=== PATIENT | male | born 1960 | race Caucasian/White ===

== ENCOUNTER 2021-03-06 11:24 | Outpatient (CLI) | payer OTHER, SELFPAY | END 2021-03-06 11:25 | disposition home or self-care (01) | LOC: CHSCOVIDVC 11:26 | PROVIDERS: PCP Family Medicine | DX: Z23 Encounter for immunization (principal) | CPT/HCPCS: 0011A; 0012A; 91301 ==

== ENCOUNTER 2021-10-05 07:10 | Outpatient (CLI) | payer OTHER, SELFPAY ==
--- NOTE | 2021-10-05 | ECG_ITS ---
Measurements Intervals [place] Rate: 63 P: 56 MI: 160 QRS: -1 QRSD: 101 T: 39 QT: 397 QTc: 408 Interpretive Statements SINUS RHYTHM INCOMPLETE RIGHT BUNDLE BRANCH BLOCK EARLY PRECORDIAL R/S TRANSITION BASELINE WANDER- I, AVR, AVF, V1, V3-V6 BORDERLINE ECG Electronically Signed On 10-05-2021 9:19:53 LEGAL SECRETARY by Demar Bustamante D.O.
[2021-10-05 08:19] LABS: Urine Cotinine POSITIVE
[2021-10-05 08:19] LABS: Albumin Level 4.5 g/dL (3.5-5.1); Estimated Glomerular Filt Rate > 60; Glucose 86 mg/dL (65-110)
[2021-10-05 08:22] LABS: Hematocrit 48.3 % (42.0-52.0); Hemoglobin 16.2 g/dL (14.0-18.0); Hemoglobin A1C 5.2 % (<5.7)
== END 2021-10-05 07:11 | disposition home or self-care (01) ==
PROVIDERS: PCP Family Medicine; Visit Provider Orthopaedic Surgery
DX: Z01.818 Encounter for other preprocedural examination (principal); M17.12 Unilateral primary osteoarthritis, left knee; Z86.69 Personal history of other diseases of the nervous system and sense organs; E03.9 Hypothyroidism, unspecified
CPT/HCPCS: 80307; 82040; 82565; 82947; 83036; 85014; 85018; 93005

== ENCOUNTER 2021-11-02 07:09 | Outpatient (CLI) | payer OTHER, SELFPAY ==
[2021-11-02 07:54] LABS: Urine Cotinine NEGATIVE
== END 2021-11-02 07:10 | disposition home or self-care (01) ==
PROVIDERS: PCP Family Medicine; Visit Provider Orthopaedic Surgery
DX: Z01.810 Encounter for preprocedural cardiovascular examination (principal); M17.12 Unilateral primary osteoarthritis, left knee; Z87.891 Personal history of nicotine dependence
CPT/HCPCS: 80307

== ENCOUNTER 2022-02-02 09:44 | Outpatient (CLI) | payer OTHER, SELFPAY ==
[2022-02-02 11:21] LABS: Basophils Absolute Auto 0.1 K/mm3 (0.0-0.1); Basophils Percent Auto 0.9 % (0.2-1.2); Eosinophils Absolute Auto 0.4 K/mm3 (0-0.3); Eosinophils Percent Auto 4.7 % (0-4.4); Hematocrit 47.1 % (42.0-52.0); Hemoglobin 15.9 g/dL (14.0-18.0); Immature Granulocyte Absolute 0.03 K/mm3 (0.00-0.031); Immature Granulocyte Percent A 0.4 % (0-0.5); Lymphocytes Absolute Auto 2.61 K/mm3 (0.9-3.2); Lymphocytes Percent Auto 35.2 % (18.3-44.2); Mean Corpuscular HGB Conc 33.8 g/dl (32-36); Mean Corpuscular Hemoglobin 32.2 pg (26-34); Mean Corpuscular Volume 95.3 fl (80-100); Mean Platelet Volume 9.4 fl (7.4-10.4); Monocytes Absolute Auto 0.6 K/mm3 (0.1-0.6); Monocytes Percent Auto 8.4 % (2.6-8.5); Neutrophils Absolute Auto 3.7 K/mm3 (1.3-6.7); Neutrophils Percent Auto 50.4 % (45.5-73.1); Platelet Count Result 215 k/mm3 (150-375); Red Blood Count 4.94 M/mm3 (4.6-6.20); Red Cell Distribution Width 12.3 % (11.5-14.5); White Blood Count 7.4 K/mm3 (4.5-10.0)
[2022-02-02 11:30] LABS: Albumin Level 4.8 g/dL (3.5-5.1); Estimated Glomerular Filt Rate > 60; Glucose 102 mg/dL (65-110)
[2022-02-02 11:33] LABS: Hemoglobin A1C 5.1 % (<5.7)
[2022-02-02 12:28] LABS: Urine Cotinine NEGATIVE
== END 2022-02-02 09:45 | disposition home or self-care (01) ==
PROVIDERS: PCP Family Medicine; Visit Provider Orthopaedic Surgery
DX: Z01.812 Encounter for preprocedural laboratory examination (principal); M17.12 Unilateral primary osteoarthritis, left knee; Z51.81 Encounter for therapeutic drug level monitoring; Z79.899 Other long term (current) drug therapy
CPT/HCPCS: 80307; 82040; 82565; 82947; 83036; 85025; 87081

== ENCOUNTER 2022-03-01 00:59 | Day surgery (SDC) | payer OTHER, SELFPAY ==
--- NOTE | 2022-02-02 09:50 | PC.NURSE ---
Report to the Outpatient Waiting Room, entrance under the green pavilion located off [facility], at time __11:30AM___ on date _03/01/22____. OR Time: __1:30PM . - You and your visitor will be asked a series of questions to screen for COVID 19 for your protection. - A mask is required within the hospital. Preoperative COVID Testing Requirements: No COVID Test needed if: (proof is required; if not received patient will have Rapid Test prior to entry) - Patient has received COVID Vaccine at least 14 days prior to procedure date or - Patient has positive COVID test result within last 90 days of surgery date. COVID Test needed if above criteria is not met If not COVID vaccinated a COVID test must be conducted within 72 hours of surgery and patient is asked to isolate self from time of testing until procedure. You will go to the [facility] [place] [facility] for your COVID testing. The [facility] [place] [facility] is located at the corner of [address] [facility]. You will only be called if COVID results are positive and your surgeon may reschedule your elective surgery date. Patients may have clear liquids (water, carbonated beverages, clear teas, apple juice) until 3 hours prior to surgery with a maximum of 20 ounces. - No food from midnight until time of surgery - Infants may have breast milk until 4 hours before surgery, formula 6 hours prior to surgery. - Children will be allowed to drink immediately following surgery. If applicable, please bring a bottle or sippy cup to assist with drinking. Juice, water, soda, and popsicles are readily available. For infants on formula, please bring formula the day of surgery. Pacifiers are allowed. Take the following medications with a SIP of water the morning of surgery: ___LEVOTHYROXINE, GABAPENTIN Medications to discontinue per physician ____HOLD ALL VITAMINS/SUPPLEMENTS AND NSAIDS(MELOXICAM & ALEVE) 7 DAYS PRE-OP Date to take last dose 02/22/22 Please no make-up, nail pakistani, hairspray, perfume, deodorant, or body powder the day of surgery. No jewelry (including any body piercings) or valuables the day of surgery, leave them at home. Please take a shower or bath the night before, or the morning of, surgery with an antibacterial soap. Wear comfortable, loose fitting clothing. Children are encouraged to wear pajamas. - Jewelry must be removed prior to entering the operating room. Rings and piercings that are not removed may be cut off. - The hospital will not accept responsibility for valuables. - Please leave all valuables, including medications, at home the day of surgery. If you are going home after surgery, a licensed power truck driver must drive you home. - NO public transportation without another adult. - We recommend that an adult stay with you for 24 hours following discharge. - We also recommend that you do not drive, make important decision, drink alcoholic beverages, or take any drugs that were not prescribed by your health care provider for at least 24 hours after your discharge time. For Pediatric surgeries, we recommend two adults accompany the child home (only one inside the building at this time). One visitor will be allowed to accompany the patient into the hospital. Patients visitor will be instructed to remain with patient at all times or leave the building. We will allow the visitor to come back to the postoperative area when patient is ready. Follow any additional instructions given to you from your surgeon. Telephone instructions given to __PATIENT and asked if any additional questions and then verbalized understanding. Patient advised to call surgeon office or pre surgery nurse liaison [phone] if any additional questions.
[2022-02-02 10:02] VITALS: BP 154/85; PULSE 74; RESP 16; TEMP 37.2; O2SAT 95; BMI 34.0
[2022-03-01] VITALS (10 sets, daily range): BP systolic 136–168; BP diastolic 80–93; PULSE 67–89; RESP 10–18; TEMP 36.3–36.9; O2SAT 93–98
--- NOTE | ~2022-03-01 | XR_ITS ---
EXAMINATION: XR knee LT 2V DATE: 03/01/2022 15:33 INDICATION: Postoperative evaluation following left total knee arthroplasty. TECHNIQUE: Anteroposterior and lateral views of the left knee were obtained. COMPARISON: None. FINDINGS: Left total knee arthroplasty with patellar resurfacing appears well seated and in near anatomic align ment. No fractures identified. Expected postoperative subcutaneous and intra-articular gas. IMPRESSION: 1. Left total knee arthroplasty, negative for postoperative purposes. Reviewed, dictated and finalized at location B.
--- NOTE | 2022-03-01 07:17 | WPDHPUPDATE1 ---
History and Physical Update Update Date/Time: 03/01/22 07:17 History and Physical has been reviewed, including an updated exam of the patient. There are NO changes in the patient's condition. Risks, benefits, and alternatives have been discussed and questions answered. Patient agrees to proceed with procedure.
--- NOTE | 2022-03-01 08:01 | WPDANESEPPF ---
Anes - Initial Pre Proc Eval Procedure: Operation Date: 03/01/22 13:30 Proposed Procedures p Left Total Knee Arthroplasty - Klever Corirgan MD Date/Time: 03/01/22 08:01 Surgeon: Klever Corrigan MD Pre Op Diagnosis: primary oa left knee Patient Data Age: 61 Gender: M Height: 1.93 m Weight: 126.7 kg Last Vital Signs Temp 37.2 C 02/02/22 10:02 Pulse 74 02/02/22 10:02 Resp 16 02/02/22 10:02 BP 154/85 H 02/02/22 10:02 Pulse Ox 95 02/02/22 10:02 Allergies Allergy/AdvReac Type Severity Reaction Status Date / Time No Known Allergies Allergy Verified 03/01/22 11:54 Home Medications Medication Instructions Recorded Confirmed Type gabapentin 600 mg tablet 600 mg PO QAM 08/23/21 02/02/22 History levothyroxine 112 mcg capsule 112 mcg PO QAM 08/23/21 02/02/22 History meloxicam 15 mg tablet 15 mg PO QAM 08/23/21 02/02/22 History naproxen sodium [Aleve] 220 mg PO BID PRN 02/02/22 02/02/22 History vzytwfi-qedi-kdtrj-oreg-capryl 1 cap PO DAILY 02/02/22 02/02/22 History zolpidem 10 mg PO HS 02/02/22 02/02/22 History Patient hx anesthesia problems: none Family hx anesthesia problems: none Results Review: All pre-operative results and documents have been reviewed as part of the pre-operative evaluation. [facility] Past Medical History Medical History (Updated 03/01/22 @ 08:02 by Wilmar Azevedo MD) Arthritis of left knee History of nicotine dependence History of sleep apnea Hypothyroidism Obesity Surgical History Surgical History History of back surgery Social History Social History Smoking packs per day: 0.2 Smoking cigarettes per day: 4.0 Years smoked: 30 Smoking pack-years: 6.00 Tobacco type: cigarettes Smoking end date: 11/06/15 Alcohol intake: current Drinks per week: 4 Substance use: never Living arrangements: with family Additional living arrangements comments: Spiritual care concerns: No Anes - Eval Final PreProcedure Day of Procedure 03/01/22 08:01 Patient weight: obese Heart: regular rate and rhythm Lungs: clear to auscultation and normal air movement Airway: Mallampati scale class II Neurological: alert and oriented Last oral intake: >/= 8 hours ASA classification: III Emergent: no Anesthetic plan: proceed Anesthesia type and monitoring: general LMA Results Review: All pre-operative results and documents have been reviewed as part of the pre-operative evaluation. Informed Consent: The patient's anesthetic plan and its attendant risks and benefits were discussed with the patient/family/POA. Questions were solicited and answers provided to the satisfaction of the patient/family/POA.
--- NOTE | 2022-03-01 08:02 | WPDANESPNB ---
Anes - Peripheral Nerve Block Date/Time: 03/01/22 08:02 I have discussed with the patient/family/POA the placement of a peripheral nerve block for post-operative pain management, including associated risks, benefits, complications, and side effects. Alternative methods of post-operative analgesia were detailed. Questions were solicited and answers provided to the satisfaction of the patient/family/POA. Time-Out: A pre-procedural Time-Out was completed immediately before starting the procedure and confirmed: Patient Identification, Site, Procedure, Patient Position and the Availability of Requisite Equipment. Clinical Indications: Acute post-operative pain management requested by the operative surgeon. Nerve Block Insertion Note Anes-nerve block: adductor canal left Patient position: supine Skin prep: chlorhexidine Needle: 22 gauge, stimulating, insulated echogenic needle. Needle length: 80 mm Technique: ultrasound Technique comment: in plane Injectate: bupivacaine 0.5% with epi 5 mcg/ml (30cc) Observations: tolerated well Complications: none Procedure start time:: 1230 Procedure end time:: 123
[2022-03-01] MEDS: ACETAMINOPHEN 500 MG TABLET 1000 MG PO (12:10)
[2022-03-01] MEDS: LACTATED RINGERS 1,000 ML 30 ML IV CONT ×2 (12:10→15:16)
[2022-03-01] MEDS: TRANEXAMIC ACID 1,000MG/ISO100 1,000 MG/100 ML BAG 200 MG IVPB (12:14)
[2022-03-01] MEDS: ceFAZolin 3 GM/D5W 100 ML 100 ML IVPB (12:44)
--- NOTE | 2022-03-01 15:05 | P.OP_ITS ---
Procedure Note - Detailed Date of Procedure 03/01/22 Pre-op Diagnosis primary oa left knee Post-op Diagnosis Same Procedure Performed Total knee arthroplasty, left knee. Surgeon Klever Corrigan MD Doctor Of Osteopathy Yasmin House PA-C Anesthesia General and Regional (Subsartorial block.) Description of Procedure The patient was given a nerve block preoperatively, and then brought to the operating room. A general anesthetic was administered. The leg was prepped and draped in the usual sterile fashion. The limb was elevated and the tourniquet inflated to 300 mmHg during initial exposure, and cementation. A longitudinal incision was created along the medial border of the patella and patellar tendon, and a trivector approach to the knee was performed. A minimal medial release was taken. The knee was then flexed. The osteophytes were carefully removed. The intramedullary guide was placed in the femoral canal. The distal femoral resection was then taken with the oscillating saw. The collateral ligaments were carefully protected. The tibia was carefully exposed. The jig was applied, and the proximal tibia was resected according to preoperative plan. The knee was balanced in extension. Appropriate releases were taken where needed. The anterior cruciate ligament and meniscal remnants were removed. The posterior cruciate ligament was preserved. The patella was measured. Patellar resection was carried out with the oscillating saw. The lug holes drilled. The femur was sized and rotation assessed using a combination of gap balancing, posterior referencing, and the AP axis. The 4 in 1 cutting block was used to finish the femoral cuts after equal gaps were assured. The lug holes were drilled. The osteophytes were carefully removed from the back of the knee. The knee was copiously irrigated with antibiotic solution periodically throughout the procedure. The meniscal remnants were removed. The spacer block was used to confirm equal flexion and extension gaps. Further releases were performed as needed. The tibia was sized and broached. The bony surfaces were prepared for cementing with pulsatile lavage. The real tibial component was cemented into position followed by press fitting the femoral component. Excess cement was carefully removed. The patella component was press-fit. Patellar tracking was carefully assessed. No additional releases were required. The wound was closed with #1 Vicryl suture, #2 Quill suture, 0-Quill suture, and 2-0 Quill suture followed by Steri-Strips. A sterile bulky dressing was applied. Meticulous hemostasis was maintained throughout the procedure. There were no complications. The patient was extubated and brought to the recovery room in stable condition after the application of sterile dressing with Barrie bandage. Physician regional administrative assistant, Yasmin House PA-C, required for surgery; including patient positioning, draping, tissue retraction, maintaining instrument position, cement removal, wound closure, and dressing placement. Implants We Heart Itathlon cruciate retaining knee system Press-Fit femur cruciate retaining size 6, low profile cemented tibia size 7, 10 mm X3 polyethylene CR insert. 38 mm tritanium Press-Fit patella. Estimated Blood Loss 100 Drains No Complications No immediate complications Condition Stable Disposition PACU
--- NOTE | 2022-03-01 16:13 | ADMGEN ---
This patient, Med Rios, was admitted to Medical Room 252-01. Patient/family oriented to hospital policies and general routines including ID bracelet, bed and alarms, visiting hours, pain management, procedures, bathroom and other care routines, personal items, smoking policy, room service/diet, and visiting hours. Information on how to activate the Rapid Response Team has been discussed. Patient/Family are encouraged to report perceived risks to care and to ask questions if they do not understand what they are told or what they should do.
[2022-03-01] MEDS: oxyCODONE HCL (*CRX) 5 MG TAB IR 10 MG PO ×2 (16:21→21:37)
[2022-03-01] MEDS: SODIUM CHLORIDE 0.9% IV 1,000 ML 125 ML IV CONT (16:25)
[2022-03-01] MEDS: GABAPENTIN 300 MG CAPSULE 600 MG PO (16:26)
[2022-03-01] MEDS: SENNA/DOCUSATE SODIUM TABLET 2 TAB PO (16:26)
[2022-03-01] MEDS: ASPIRIN 81 MG ENTERIC TABLET PO (16:26)
[2022-03-01] MEDS: CYCLOBENZAPRINE HCL 10 MG TABLET PO (19:42)
[2022-03-01] MEDS: ceFAZolin 2 GM/D5W 50 ML 2 GM/50 ML BAG IVPB (21:36)
[2022-03-01] MEDS: ZOLPIDEM TARTRATE (*CRX) 5 MG TABLET 10 MG PO (21:36)
[2022-03-02 01:46] VITALS: BP 126/84; PULSE 75; RESP 20; TEMP 36.2; O2SAT 98
[2022-03-02] MEDS: ceFAZolin 2 GM/D5W 50 ML 2 GM/50 ML BAG IVPB ×2 (05:01→12:05)
[2022-03-02] MEDS: LEVOTHYROXINE SODIUM 112 MCG TABLET PO (05:41)
[2022-03-02] MEDS: oxyCODONE HCL (*CRX) 5 MG TAB IR 10 MG PO ×2 (05:41→09:58)
[2022-03-02 05:46] VITALS: BP 132/89; PULSE 71; RESP 18; TEMP 36.3; O2SAT 97
[2022-03-02 06:00] VITALS: BMI 37.6
[2022-03-02] MEDS: polyethylene glycoL 3350 17 GM POWD.PACK PO (08:40)
[2022-03-02] MEDS: ASPIRIN 81 MG ENTERIC TABLET PO (08:41)
[2022-03-02] MEDS: SENNA/DOCUSATE SODIUM TABLET 2 TAB PO (08:41)
[2022-03-02] MEDS: GABAPENTIN 300 MG CAPSULE 600 MG PO (08:41)
[2022-03-02] MEDS: MELOXICAM 7.5 MG TABLET 15 MG PO (08:41)
[2022-03-02 09:46] VITALS: BP 133/75; PULSE 86; RESP 18; TEMP 36.4; O2SAT 96
--- NOTE | 2022-03-02 09:50 | P.DS_ITS ---
DS: Admitting Diagnosis Discharge Date 03/02/22 Admitting Diagnosis OA knee Left DS: Discharge Diagnosis Discharge Diagnosis (1) Status post left knee replacement: Code(s): Z96.652 - Presence of left artificial knee joint Status: Acute Assessment and Plan: Postop day 1: Left total knee arthroplasty. Patient tolerated procedure well. No complications. Pain manageable with pain medication. No numbness or tingling. We had a lengthy discussion regarding postoperative wound care, limitations, expectations, and exercises. Patient shows good understanding. He has had initial physical therapy and is tolerating it well. DVT prophylaxis: 81 mg baby aspirin b.i.d. for 14 days. Pain medication: Percocet. Prednisone. Oxycodone. Patient has followup appointment with Dr. Corrigan in 3 weeks. DS: Summary Hospital Course Reason for hospitalization: Total knee arthroplasty Hospital Course: Patient tolerated procedure well. Has had initial PT/OT. Status at Discharge Functional status at discharge: uses cane/walker Overall status at discharge: patient is progressing back to baseline Time Spent with Patient Time attestation: Total time spent providing and/or coordinating discharge services: Exam Narrative: Overweight 61 Male. Resting comfortably in bed. Wearing compression socks bilaterally. Dressing intact with no drainage. Moderate swelling. No ecchymosis. No erythema. No hematoma. Range of motion limited due to pain. Calf nontender. Neurologic status intact. No varicosities. Distal pulses palpable. DS: Data Data Completed and Pending Labs on day of discharge: Labs from last 24 hours 03/01/22 12:09 Blood Type A Positive Antibody Screen Negative Discharge Plan Discharge Patient Disposition: Home, Self-Care Discharge Instructions: See green instruction sheets Stand Alone Forms: General Discharge Instructions Follow-up/Referrals: Yasmin House PA [Physician Continuous Improvement Facilitator] - Discharge Medications: New meloxicam 15 mg tablet 15 mg PO DAILY Qty: 30 RF: 0 prednisone 5 mg tablet 5 mg PO DAILY 21 Days Qty: 21 RF: 0 aspirin 81 mg tablet,delayed release (DR/EC) 81 mg PO BID 14 Days Qty: 28 RF: 0 oxycodone-acetaminophen 5-325 mg tablet 1 - 2 tablet PO Q4-6H MDD 6 PRN (Reason: pain) Qty: 30 RF: 0 Continued meloxicam 15 mg tablet 15 mg PO QAM RF: 0 levothyroxine 112 mcg capsule 112 mcg PO QAM RF: 0 gabapentin 600 mg tablet 600 mg PO QAM RF: 0 zolpidem 10 mg tablet 10 mg PO HS RF: 0 xujbjlv-guoi-molib-oreg-capryl 100 mg-150 mg- 50 mg-150 mg Capsule 1 cap PO DAILY RF: 0 naproxen sodium [Aleve] 220 mg Capsule 220 mg PO BID PRN (Reason: Pain) RF: 0 Adults Multivitamin 1 cap PO DAILY RF: 0
--- NOTE | 2022-03-02 10:33 | WPDANESPN ---
Anes - Prog Note Post-Op Date/Time: 03/02/22 10:33 Cardiovascular status: normal Respiratory status: normal Airway patency: baseline Mental status: baseline Post-Op hydration status: normal Vital Signs: Last Vital Signs Temp 97.4 F L 03/02/22 05:46 Pulse 71 03/02/22 05:46 Resp 18 03/02/22 05:46 BP 132/89 03/02/22 05:46 Pulse Ox 97 03/02/22 05:46 Pain Score (VAS): 11/15 I/O: Intake & Output 03/01/22 03/02/22 03/02/22 23:59 07:59 15:59 Intake Total 590 950 180 Balance 590 950 180 03/01/22 12:09 Blood Type A Positive Antibody Screen Negative Post-procedural complaints: none Patient Feedback: Patient satisfied with anesthetic care.
== END 2022-03-02 13:02 | disposition home or self-care (01) ==
LOC: ANHSURGERY 14:11 → ANH2MED 16:04
PROVIDERS: PCP Family Medicine; Visit Provider Orthopaedic Surgery
PROC: (CPT 27447; principal; 2022-03-01 13:30)
DX: M19.072 Primary osteoarthritis, left ankle and foot (principal); G89.18 Other acute postprocedural pain; E03.9 Hypothyroidism, unspecified; E66.9 Obesity, unspecified; Z68.37 Body mass index [BMI] 37.0-37.9, adult; Z87.891 Personal history of nicotine dependence
CPT/HCPCS: 27447; 64447; 36415; 73560; 80307; 82040; 82565; 82947; 83036; 85025; 86850; 86900; 86901; 87081; 97110; 97161; 97165; A9270; C1713; C1776; J0131; J0171; J0690; J1100; J1170; J1885; J2250; J2270; J2405; J2704; J2795; J3010; J7030; J7120

== ENCOUNTER 2022-03-15 08:00 | Outpatient (RCR) | payer OTHER, SELFPAY ==
--- NOTE | 2022-03-15 10:30 | PTOPEVAL ---
Thank you for referring Med Rios to [facility].? The patient is scheduled to be seen for therapy? ____x/week for ___ weeks. Please review, sign, date and return this plan of care RODOLFO. I agree with and certify that the following plan of care is medically necessary. Referring Physician Date Admitting Provider: Attending Provider: Klever Corrigan MD Referring Provider: *PT Outpatient Evaluation Start: 03/15/22 08:00 Freq: Status: Active Protocol: Document 03/15/22 08:01 [facility] (Rec: 03/15/22 09:10 [facility] [id number]) Therapy Assessment Status Assessment Status Assessment Status Evaluation Outpatient Past Medical History Neurological History Hx Neurological Disorders No Significant History Cardiovascular History Hx Cardiac Disorders No Significant History Respiratory History Hx Respiratory Disorders No Significant History Gastrointestinal History Hx Hernia Yes: S/P UMBILICAL HERNIA REPAIR Genitourinary History Hx Genitourinary Disorders No Significant History Musculoskeletal History Hx Arthritis Yes: KNEES, ELBOWS, SHOULDERS Hx Back Pain Yes: GABAPENTIN, SCIATICA Hx Spinal Surgery Yes: L5 SURG - 35 YEARS AGO Hx Other Musculoskeletal Disorders Yes: PRIMARY OA LT KNEE Hematological History Hx Hematological Disorders No Significant History Endocrine History Hx Hypothyroidism Yes HEENT History Hx Tonsillectomy Yes: CHILD Integumentary History Hx Skin Disorders No Significant History Reproductive History Hx Reproductive Disorders No Significant History Psychosocial History Hx Psychiatric Disorders No Significant History Pain History Has Past Pain Affected Your Daily Life Yes: BACK, KNEE Anesthesia History Hx Anesthesia Reactions No Significant History Evaluation Information Problem Diagnosis L TKA Onset 03/01/22 Additional Evaluation Detail LEFS = 73.8% Functionally Declined (Raw Score = 21) Subjective Information Pt reports that he has been Query Text:As Reported By Patient/ able to walk better and use Family stairs better since the surgery, but struggles to perform tasks around the home. He reports that everything remains challenging at this time. He states his knee continues to get a bit better each day and that he is still taking pain meds to manage his pain. Prior Level of Function Comments Additional Prior Level of Function pt was
--- NOTE | 2022-03-15 10:32 | PTOPEVAL ---
Thank you for referring Med Rios to [facility].? The patient is scheduled to be seen for therapy? ____x/week for ___ weeks. Please review, sign, date and return this plan of care RODOLFO. I agree with and certify that the following plan of care is medically necessary. Referring Physician Date Admitting Provider: Attending Provider: Klever Corrigan MD Referring Provider: *PT Outpatient Evaluation Start: 03/15/22 08:00 Freq: Status: Active Protocol: Document 03/15/22 08:01 [facility] (Rec: 03/15/22 09:10 [facility] [email or web address]) Therapy Assessment Status Assessment Status Assessment Status Evaluation Outpatient Past Medical History Neurological History Hx Neurological Disorders No Significant History Cardiovascular History Hx Cardiac Disorders No Significant History Respiratory History Hx Respiratory Disorders No Significant History Gastrointestinal History Hx Hernia Yes: S/P UMBILICAL HERNIA REPAIR Genitourinary History Hx Genitourinary Disorders No Significant History Musculoskeletal History Hx Arthritis Yes: KNEES, ELBOWS, SHOULDERS Hx Back Pain Yes: GABAPENTIN, SCIATICA Hx Spinal Surgery Yes: L5 SURG - 35 YEARS AGO Hx Other Musculoskeletal Disorders Yes: PRIMARY OA LT KNEE Hematological History Hx Hematological Disorders No Significant History Endocrine History Hx Hypothyroidism Yes HEENT History Hx Tonsillectomy Yes: CHILD Integumentary History Hx Skin Disorders No Significant History Reproductive History Hx Reproductive Disorders No Significant History Psychosocial History Hx Psychiatric Disorders No Significant History Pain History Has Past Pain Affected Your Daily Life Yes: BACK, KNEE Anesthesia History Hx Anesthesia Reactions No Significant History Evaluation Information Problem Diagnosis L TKA Onset 03/01/22 Additional Evaluation Detail LEFS = 73.8% Functionally Declined (Raw Score = 21) Subjective Information Pt reports that he has been Query Text:As Reported By Patient/ able to walk better and use Family stairs better since the surgery, but struggles to perform tasks around the home. He reports that everything remains challenging at this time. He states his knee continues to get a bit better each day and that he is still taking pain meds to manage his pain. Prior Level of Function Comments Additional Prior Level of Function pt was
== END 2022-04-21 10:17 | disposition home or self-care (01) ==
LOC: CHSPT 08:00
PROVIDERS: Visit Provider Orthopaedic Surgery
DX: Z47.1 Aftercare following joint replacement surgery (principal); Z96.652 Presence of left artificial knee joint
CPT/HCPCS: 97014; 97016; 97110; 97161; 97530; G0283

== ENCOUNTER 2022-10-28 12:31 | Emergency (ER) | payer OTHER, SELFPAY ==
--- NOTE | ~2022-10-28 | XR_ITS ---
Right Shoulder Technique: AP and scapular Y views were obtained. Clinical History: Pain Findings: No fracture or dislocation is seen. Osseous alignment is anatomic. The glenohumeral and acr omioclavicular joint spaces are preserved. Soft tissues are unremarkable. Impression: Unremarkable right shoulder radiographs. Reviewed, dictated and finalized at [facility]. NALISM INTERN Impression: Unremarkable right shoulder radiographs.
[2022-10-28 12:44] VITALS: BP 177/98; PULSE 85; RESP 20; TEMP 37.1; O2SAT 97
--- NOTE | 2022-10-28 12:44 | ED.UPPEXIN ---
HPI - Extremity Injury (Upper) General Chief Complaint: Extremity Injury, Upper Stated Complaint: R should pain Time Seen by Provider: 10/28/22 12:33 Source: patient and RN notes reviewed Mode of arrival: ambulatory Limitations: no limitations History of Present Illness HPI narrative: patient states that 2 weeks ago he was working on his car at home. He slipped and his shoulder seem to give way or pulled any thought he just strained it. Then yesterday he was taking his dog for a walk the dog took off while he was holding the leash and jerked his shoulder. He says he has not been able to move it since last evening. complaint: injury to: right and shoulder Onset (ago): week(s) (2) Other Extremity Injury: Right: shoulder Other injuries: none Handedness: right Place: home Severity: severe Relieving factors: none Exacerbating factors: movement of extremity Associated symptoms: denies other symptoms Related Data Home Medications Medication Instructions Recorded Confirmed levothyroxine 112 mcg capsule 112 mcg PO QAM 08/23/21 10/28/22 tumeric 100 mg-david 150 mg-olive 1 cap PO DAILY 02/02/22 10/28/22 50 mg-oreg 150 mg-caprylate capsule zolpidem 10 mg tablet (Ambien) 10 mg PO HS 02/02/22 10/28/22 Adults Multivitamin 1 cap PO DAILY 03/01/22 10/28/22 Allergies Allergy/AdvReac Type Severity Reaction Status Date / Time No Known Allergies Allergy Verified 10/28/22 12:52 Review of Systems Review of Systems: All systems reviewed & are unremarkable except as noted in HPI and below PMFSH Past Medical History Medical History Arthritis of left knee History of nicotine dependence History of sleep apnea Hypothyroidism Obesity Surgical History Surgical History History of back surgery History of total left knee replacement (~03/01/22) Family History Family History Father Lung cancer Heart disease Mother Breast cancer Social History Social History Years smoked: 40 Smoking status: Former smoker Tobacco type: cigarettes Additional smoking assessment comments: on and off for 40 years Alcohol intake: current Drinks per week: 6 Substance use: never Additional living arrangements comments: Spiritual care concerns: No Exam Const: General: healthy appearing, no acute distress and alert Nutritional Appearance: well nourished Orientation/consciousness: patient oriented x3 Limitations: no limitations HENMT: Head: normal to inspection Ears: external ears normal Eyes: Conjunctivae: conjunctivae normal Pupils: Equal, round and reactive pupils present EOM: EOMs intact bilaterally Neck: Neck: normal visual inspection Resp: Effort & Inspection: normal respiratory effort Auscultation: clear to auscultation bilaterally Cardio: Rate: regular rate Rhythm: regular rhythm GI: GI Palp: Yes Soft to palpation and No Tenderness to palpation present (GI) Auscultation: normal bowel sounds Back/Spine/Pelvis: Cervical Spine: cervical ROM normal Thoracic/Lumbar Spine: thoraco-lumbar ROM normal Skin: General skin exam: normal color Rashes: no rashes Neuro: General: patient oriented x3, moves all extremities, no focal motor deficits and CN's II-XI intact bilaterally Speech: normal speech Gait exam (Neuro): Normal gait present Extrem: General: normal exam except as noted and no clubbing, cyanosis or edema Right upper extremity: shoulder/upper arm tenderness ( Posterior glenohumeral joint), axillary nerve sensory function normal and abnormal ROM held in an abnormal fashion in ADduction, in flexion and in internal rotation, pain with active ROM in ADduction, in extension, in flexion and external rotation- and pain with passive ROM with ABduction, with extension and with flexion Psych:
[2022-10-28] MEDS: KETOROLAC (*BKC) 60 MG/2 ML VIAL IM (13:42)
[2022-10-28 14:03] VITALS: BP 148/98; PULSE 80; RESP 20; TEMP 36.7; O2SAT 98
== END 2022-10-28 14:07 | disposition home or self-care (01) ==
PROVIDERS: Emergency Provider Emergency Medicine; PCP Family Medicine
DX: S46.911A Strain of unspecified muscle, fascia and tendon at shoulder and upper arm level, right arm, initial encounter (principal); Z87.891 Personal history of nicotine dependence; W01.0XXA Fall on same level from slipping, tripping and stumbling without subsequent striking against object, initial encounter; Y92.009 Unspecified place in unspecified non-institutional (private) residence as the place of occurrence of the external cause
CPT/HCPCS: 73030; 96372; 99283; A4565; J1885

== ENCOUNTER 2022-12-08 08:02 | Outpatient (RCR) | payer OTHER, SELFPAY ==
--- NOTE | 2022-12-08 09:08 | PTOPEVAL1 ---
Assessment and note entered by JT File, PT Evaluation Information Assessment Status Evaluation Diagnosis R shoulder pain Onset 11/09/22 Subjective Information patient reports he has been having pain for several months in the R shoulder. he reports it was useable for a while, but then about 5 weeks ago he wa walking his dog and his dog yanked real hard on the leash and pulled his arm. he reports he thought the shoulder was dislocated due to how bad the pain was. he reports he was in a sling for several weeks and had an injection. he reports no relief from the injection. he reports he has not had an MRI, but reports he has had an xray. he reports he has a follow up with Dr. Corrigan on 12/20/22. he reports he has increased pain in the R shoulder lifting and raising his arm away from his body. he reports keeping his arm at his side is tolerable. he reports he is not able to lift a gallon of milk out of the refrigerator. he reports the pain is so severe he is unable to sleep. he locates the pain to the shoulder joint but points to the front of the shoulder. Reported Pain Level Pain Score 2: Self Report Assessment PT Clinical Summary mr. pena presents to skilled PT services for evaluation and treatment of pain in the R shoulder . he presents this date with decreased rom, weakness, pain, and objective assessment that suggests and injury to the biceps/labrum of the R shoulder. he would benefit from continued skilled PT and exercises to improve his objective/ functional deficits and progress towards a return to his prior level functional activity performance /quality of life. Plan of Care Interventions Electrical Stimulation,Hot Pack/Cold Pack,Manual Therapy,Neuro Re-education,Patient/Caregiver Educati,Therapeutic Activities,Therapeutic Exercise PT Services Indicated Yes Treatment Frequency and 3x weekly for 12 visits Duration These treatments will address the objective and functional deficits as defined above. The patient will be advanced safely and appropriately in order for the patient to progress towards his/her prior level of function. Additional exercises will be introduced and as well as a comprehensive home exercise program upon discharge, if needed, ?to ensure carryover of functional gains achieved in the clinic. This treatment plan has been reviewed and agreement upon by the patient.
--- NOTE | 2023-01-04 09:53 | PTOPREEVAL ---
Assessment and note entered by JT File, PT Evaluation Information Assessment Status Progress Diagnosis R shoulder pain Onset 11/09/22 Subjective Information patient reports resting the R Shoulder is a 2/10 pain, drinking coffee is a 5/10 pain, and lifting anything like a gallon of milk is a 10/10 pain. he reports the arm is not very useful. he reports he is having an evaluation with the surgeon today regarding the steps forward after the results of his MRI. he reports overall he does not feel he has made any improvement, and may have increased pain in the biceps mm. Reported Pain Level Pain Score 2: Self Report Assessment PT Clinical Summary mr. pena presents to skilled PT for his 10th skilled therapy visit. as of this date, he continues to have pain in the R shoulder, and has several tears per the MRI of the R shoulder. he has an appointment today with the surgeon to discuss options regarding the results of his MRI. he will DC therapy this date, and continue with HEP independent as he is expected to have surgery on the R shoulder. he has met goals for R shoulder rom and hep performance, but no other goals have been met as of this date. Plan of Care Treatment Frequency and DC to independent HEP and MD follow up. expected Duration surgery on the R shoulder. These treatments will address the objective and functional deficits as defined above. The patient will be advanced safely and appropriately in order for the patient to progress towards his/her prior level of function. Additional exercises will be introduced and as well as a comprehensive home exercise program upon discharge, if needed, ?to ensure carryover of functional gains achieved in the clinic. This treatment plan has been reviewed and agreement upon by the patient.
== END 2023-01-04 10:11 | disposition home or self-care (01) ==
LOC: CHSPT 08:02
PROVIDERS: Visit Provider Orthopaedic Surgery
DX: M25.511 Pain in right shoulder (principal)
CPT/HCPCS: 97014; 97110; 97140; 97161; 97530; G0283

== ENCOUNTER → 2022-12-29 07:59 | Outpatient (CLI) | payer OTHER, SELFPAY ==
--- NOTE | ~2022-12-29 | MR_ITS ---
MRI of the right shoulder Technique: Axial proton-density fat-sat images, coronal proton density fat-sat and T2 fat-sat images, and sagittal T1-weighted and T2 fat-sat images were acquired. Clinical History: Pain Findings: There is moderate to severe AC joint degenerative change, but minimal if any significant im pingement upon the rotator cuff musculature. Coracoclavicular, coracoacromial, and coracohumeral join ts appear intact. There is a full-thickness tear at the anterior, distal supraspinatus tendon, with fluid-filled gap me asuring approximately 2.0 x 1.8 cm in extent. Infraspinatus tendon is intact, without partial or full -thickness tear. Subscapularis tendon is intact. The tendon of the long head of the biceps is probabl y completely ruptured, with retraction to the bicipital groove. There are degenerative tearing of the superior labrum. Inferior glenohumeral ligament is intact. No significant degenerative change or effusion of the gleno humeral joint. No muscle atrophy or edema identified. Impression: 2.0 x 1.8 cm full-thickness tear involving the anterior half of the distal supraspinatus tendon. Probable complete rupture of the tendon of the long head of the biceps, with retraction to the bicipi elder groove. Degenerative tearing of the superior labrum. Moderate to advanced AC joint degenerative change. Reviewed, dictated and finalized at [facility]. ANGE ENGINEER Impression: 2.0 x 1.8 cm full-thickness tear involving the anterior half of the distal supr aspinatus tendon. Probable complete rupture of the tendon of the long head of the biceps, with re traction to the bicipital groove. Degenerative tearing of the superior labrum. Moderate to advanced AC joint degenerative change.
== END ==
PROVIDERS: PCP Family Medicine; Visit Provider Orthopaedic Surgery
DX: M25.511 Pain in right shoulder (principal); S46.811A Strain of other muscles, fascia and tendons at shoulder and upper arm level, right arm, initial encounter; S43.431A Superior glenoid labrum lesion of right shoulder, initial encounter
CPT/HCPCS: 73221

== ENCOUNTER 2023-03-14 00:17 | Day surgery (SDC) | payer OTHER, SELFPAY ==
[2023-03-06 09:35] VITALS: BMI 33.0
--- NOTE | 2023-03-06 09:42 | PC.NURSE ---
Report to the Outpatient Waiting Room, entrance under the green pavilion located off [facility], at time 09:30AM on date 03-14-23. Planned Procedure Time: 11:30AM. Time changes happen often and if your time is changed the preop area will call you the afternoon before. - You and your visitor will be asked to self-screen and do not enter if you have any COVID symptoms. - A mask is optional within the hospital at this time. Patients may have clear liquids (water, carbonated beverages, clear teas, apple juice) until 3 hours prior to surgery (08:30AM) with a maximum of 20 ounces. - No food from midnight until time of surgery Take the following medications with a SIP of water the morning of surgery: LEVOTHYROXINE DO NOT STOP ANY OF YOUR OTHER PRESCRIPTION MEDICATIONS PRIOR TO SURGERY ?EXCEPT THE FOLLOWING Medications to discontinue per physician: NSAIDS STOP 03-07-23, VITAMINS STOP 03-10-23 Please no make-up, nail kazakh, hairspray, perfume, deodorant, or body powder the day of surgery. No jewelry (including any body piercings) or valuables the day of surgery, leave them at home. Please take a shower or bath the night before, or the morning of, surgery with an antibacterial soap. Wear comfortable, loose fitting clothing. - Jewelry must be removed prior to entering the operating room. Rings and piercings that are not removed may be cut off. - The hospital will not accept responsibility for valuables. - Please leave all valuables, including medications, at home the day of surgery. If you are going home after surgery, a licensed hammer driver must drive you home. - NO public transportation without another adult if you receive anesthesia. - We recommend that an adult stay with you for 24 hours following discharge. - We also recommend that you do not drive, make important decision, drink alcoholic beverages, or take any drugs that were not prescribed by your health care provider for at least 24 hours after your discharge time. Follow any additional instructions given to you from your surgeon. If you or anyone in your household have experienced Covid symptoms in the past week, please notify your surgeon or the nurse liaison at the phone number below for possible testing. Telephone instructions given to PATIENT and asked if any additional questions and then verbalized understanding. Patient advised to call surgeon office or pre surgery nurse liaison [phone] if any additional questions.
--- NOTE | 2023-03-13 14:22 | WPDANESEPPF ---
Anes - Initial Pre Proc Eval Procedure: Operation Date: 03/14/23 11:30 Proposed Procedures p Right Shoulder Arthroscopic Rotator Cuff Repair, Proceed As Indicated - Klever Corrigan MD Date/Time: 03/13/23 14:22 Surgeon: Klever Corrigan MD Pre Op Diagnosis: right rotator cuff tear Patient Data Age: 62 Gender: M Height: 1.93 m Weight: 123 kg Allergies Allergy/AdvReac Type Severity Reaction Status Date / Time No Known Allergies Allergy Verified 03/14/23 09:50 Home Medications Medication Instructions Recorded Confirmed Type levothyroxine 112 mcg capsule 112 mcg PO QAM 08/23/21 03/14/23 History tumeric 100 mg-david 150 mg-olive 1 cap PO DAILY 02/02/22 03/14/23 History 50 mg-oreg 150 mg-caprylate capsule zolpidem 10 mg tablet (Ambien) 10 mg PO HS 02/02/22 03/06/23 History Adults Multivitamin 1 cap PO DAILY 03/01/22 03/14/23 History meloxicam 15 mg tablet 15 mg PO DAILY #30 tabs 03/02/22 03/14/23 Rx ibuprofen 200 mg tablet (Advil) 200 mg PO Q6H PRN Pain 12/21/22 03/14/23 History hydrocodone 5 mg-acetaminophen 325 1 - 2 tablet PO Q4-6H PRN pain #30 03/14/23 Rx mg tablet tabs Patient hx anesthesia problems: none Family hx anesthesia problems: none Results Review: All pre-operative results and documents have been reviewed as part of the pre-operative evaluation. [facility] Past Medical History Medical History Arthritis of left knee History of nicotine dependence History of sleep apnea Hypothyroidism Obesity Surgical History Surgical History History of back surgery History of total left knee replacement (~03/01/22) Family History Family History Father Lung cancer Heart disease Mother Breast cancer Social History Social History Years smoked: 30 Smoking status: Former smoker Tobacco type: cigarettes Second hand tobacco smoke exposure: Yes (OCCASIONALLY) Smoking end date: 03/06/22 Additional smoking assessment comments: on and off for 40 years Alcohol intake: current Drinks per week: 3 Alcohol use details: BEER Substance use: never Substance use type: does not use Lack of Transportation: No Lack of Food: Never True Current Housing: I Have Housing Concerned About Future Housing: No Difficulty Paying Gas/Electric Bills: No Difficulty Paying for Meds: No Currently Unemployed: No Education: Trade/Vocational Certificate Difficulty w/ Childcare or Family Care: No Living arrangements: with family Additional living arrangements comments: Spiritual care concerns: No Anes - Eval Final PreProcedure Day of Procedure 03/13/23 14:22 Patient weight: obese Heart: regular rate and rhythm Lungs: clear to auscultation and normal air movement Airway: Mallampati scale class II Neurological: alert and oriented Last oral intake: >/= 8 hours ASA classification: III Emergent: no Anesthetic plan: proceed Anesthesia type and monitoring: general ETT Results Review: All pre-operative results and documents have been reviewed as part of the pre-operative evaluation. Informed Consent: The patient's anesthetic plan and its attendant risks and benefits were discussed with the patient/family/POA. Questions were solicited and answers provided to the satisfaction of the patient/family/POA.
--- NOTE | 2023-03-13 14:23 | WPDANESPNB ---
Anes - Peripheral Nerve Block Date/Time: 03/13/23 14:23 I have discussed with the patient/family/POA the placement of a peripheral nerve block for post-operative pain management, including associated risks, benefits, complications, and side effects. Alternative methods of post-operative analgesia were detailed. Questions were solicited and answers provided to the satisfaction of the patient/family/POA. Time-Out: A pre-procedural Time-Out was completed immediately before starting the procedure and confirmed: Patient Identification, Site, Procedure, Patient Position and the Availability of Requisite Equipment. Clinical Indications: Acute post-operative pain management requested by the operative surgeon. Nerve Block Insertion Note Anes-nerve block: supraclavicular right Patient position: supine Skin prep: chlorhexidine Needle: 22 gauge, stimulating, insulated echogenic needle. Needle length: 80 mm Technique: ultrasound (in plane) Injectate: bupivacaine 0.25% with epi 5 mcg/ml (20cc) Observations: tolerated well Complications: none Procedure start time:: 1130 Procedure end time:: 1134
[2023-03-14] VITALS (8 sets, daily range): BP systolic 120–142; BP diastolic 68–90; PULSE 54–81; RESP 14–20; TEMP 36.1–36.3; O2SAT 92–96; BMI 33.0
[2023-03-14] MEDS: LACTATED RINGERS 1,000 ML 30 ML IV CONT ×2 (10:15→14:30)
[2023-03-14] MEDS: ACETAMINOPHEN 500 MG TABLET 1000 MG PO (10:19)
[2023-03-14] MEDS: KETOROLAC 15 MG/ML VIAL (*BKC) IV PUSH (10:19)
--- NOTE | 2023-03-14 11:27 | WPDHPUPDATE1 ---
History and Physical Update Update Date/Time: 03/14/23 11:27 History and Physical has been reviewed, including an updated exam of the patient. There are NO changes in the patient's condition. Risks, benefits, and alternatives have been discussed and questions answered. Patient agrees to proceed with procedure.
[2023-03-14] MEDS: ceFAZolin 3 GM/D5W 100 ML 100 ML IVPB (12:01)
--- NOTE | 2023-03-14 14:29 | W.PM.PROC2 ---
Procedure Note - Detailed Date of Procedure 03/14/23 Pre-op Diagnosis 1. Right rotator cuff tear 2. Degenerative labral tear 3. Impingement syndrome Post-op Diagnosis Same Procedure Performed Right shoulder 1. Arthroscopic rotator cuff repair 2. Arthroscopic subacromial decompression 3. Arthroscopic labral debridement Surgeon Klever Corrigan MD Horse Race Starter Yasmin House PA-C Anesthesia General and Regional ( interscalene block) Findings Medium size tear with A-frame type configuration. Margin convergence at the apex to avoid a dog ear. Two tunnel rip stop configuration with additional anchor laterally using the margin convergence sutures. Significant subacromial impingement treated with acromioplasty. Mild early degenerative changes along the inferior and anterior glenoid with significant labral tearing, as well as fraying at the superior posterior labrum, treated with gentle debridement using the arthroscopic shaver. Description of Procedure Preoperative antibiotics were given. An interscalene block was administered in the preoperative area. The patient was bought brought to the operating room. A general anesthetic was administered. The patient was carefully positioned in the [beach chair] position. The head and neck were carefully positioned. The non operative extremity was also carefully positioned. The shoulder was prepped and draped in the usual sterile fashion. Examination was performed. Standard posterior and anterior arthroscopic portals were established. Inflow achieved with the arthroscopic pump using saline and epinephrine. The glenohumeral joint was carefully inspected. Is there were mild degenerative changes at the anterior inferior labrum and some fraying diffusely. The biceps was previously ruptured. The subscapularis was normal. The tear of the supraspinatus was identified.. Attention was turned to the subacromial space. A complete bursectomy was performed. The rotator cuff and footprint were lightly debrided. A modest acromioplasty was performed. The tear configuration was carefully assessed. A margin convergence suture was placed at the apex of the tear. The suture limbs were capped for later fixation laterally with a suture anchor. At this point, 2 tunnels were created at the rotator cuff. The ArthroTunneler technique was utilized. Three sutures were passed through each tunnel. All sutures were then passed through the cuff tissue. The rip stop technique was utilized. The sutures were tied arthroscopically. The arthroscopic instruments were removed. The wounds were closed with 3-0 Monocryl subcuticular suture and steri strips. There were no complications. A sling was applied and the patient brought to the recovery room. Physician child care center assistant director, Yasmin House PA-C, required for surgery; including patient positioning, draping, arthroscopic camera operation, maintaining instrument position, suture retrieval, wound closure, and dressing and sling placement. Implants [employer] swivel lock closed eyelet 4.75 mm anchor. Pathology None sent Complications No immediate complications Condition Stable Disposition PACU [facility] Billing Surgery - Charge Forward: Surgery Billing
== END 2023-03-14 16:30 | disposition home or self-care (01) ==
PROVIDERS: PCP Family Medicine; Visit Provider Orthopaedic Surgery
PROC: (CPT 29805; principal; 2023-03-14 11:30)
DX: S46.011A Strain of muscle(s) and tendon(s) of the rotator cuff of right shoulder, initial encounter (principal); X50.0XXA Overexertion from strenuous movement or load, initial encounter; M75.41 Impingement syndrome of right shoulder; M75.81 Other shoulder lesions, right shoulder; G89.18 Other acute postprocedural pain; E03.9 Hypothyroidism, unspecified; E66.9 Obesity, unspecified; Z68.33 Body mass index [BMI] 33.0-33.9, adult; Z87.891 Personal history of nicotine dependence
CPT/HCPCS: 29827; 29826; 64415; A4565; A9270; C1713; J0171; J0690; J1100; J1885; J2250; J2270; J2405; J2704; J2710; J2795; J3010; J7120

== ENCOUNTER 2023-05-15 14:24 | Outpatient (RCR) | payer OTHER, SELFPAY ==
[2023-05-15 14:35] VITALS: BP_SYST 75
--- NOTE | 2023-05-15 15:22 | PTOPEVAL1 ---
Assessment and note entered by Viri Steven, PT Evaluation Information Assessment Status Evaluation Diagnosis s/p R RCR, SAD, labral debridement Onset 03/14/23 Subjective Information Med Rios reports he had right rotator cuff repair and SAD on 03/14/23. He was in a sling for 6 weeks. He notes pain still when he moves his right arm away from his side or overhead. He also notes pain still wakes him at night. He is using pain medication 3 times a day. He reports he injured his shoulder due to years of wear and tear and then trying to restrain his dog in October 2022 he had increased pain. 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 He is unable to work currently due to post op precautions. He has to lift up to 50 lbs from different levels. He will see his surgeon again on 06/26/23 and will be off work until then. Reported Pain Level Pain Score 5: Self Report Assessment PT Clinical Summary Med Rios is 9 weeks s/p right RCR, SAD, and labral debridement performed on 03/14/23. He is reporting moderate to high pain in the right shoulder at all times. He is limited with lifting, reaching, carrying, and dressing due to pain and post op precautions. He objectively demonstrates decreased and painful right shoulder PROM. Right shoulder AROM and strength were not tested due to post op status however, they are likely limited as well. He will benefit from skilled PT to address these limitations and return him to his PLOF. Plan of Care Interventions Electrical Stimulation,Hot Pack/Cold Pack,Manual Therapy,Neuro Re-education,Patient/Caregiver Educati,Therapeutic Activities,Therapeutic Exercise PT Services Indicated Yes Treatment Frequency and 2 times a week for 12 visits Duration These treatments will address the objective and functional deficits as defined above. The patient will be advanced safely and appropriately in order for the patient to progress towards his/her prior level of function. Additional exercises will be introduced and as well as a comprehensive home exercise program upon discharge, if needed, ?to ensure carryover of functional gains achieved in the clinic. This treatment plan has been reviewed and agreement upon by the patient.
--- NOTE | 2023-05-15 15:22 | OPREHPOC ---
Outpatient Therapy Plan of Care This is a Multidisciplinary Plan of Care that may contain components documented by all disciplines (PT, OT, and ST.) PT Problem 1 PT Problem #1 Knowledge Deficit PT Goal 1 Goal The patient will demonstrate independence in a home program for shoulder strengthening to continue after discharge from formal PT. PT Goal 2 Target Visit 12 PT Problem 2 PT Problem #2 Pain PT Goal 1 Goal The patient will report no greater than 5/10 right shoulder pain with all activity. Target Visit 12 PT Goal 2 Goal The patient will report no greater than 2/10 right shoulder pain when lifting 2# overhead. Target Visit 24 PT Problem 3 PT Problem #3 Impaired Range of Motion PT Goal 1 Goal The patient will demonstrate R shoulder PROM at 75 % of normal to progress to AROM and strengthening. Target Visit 12 PT Goal 2 Goal The patient will demonstrate 140 degrees of right shoulder flexion to improve OH reaching. The patient will demonstrate IR to T12 to improve dressing ability. The patient will demonstrate 75 degrees of right shoulder ER to improve ability to don a seatbelt. Target Visit 24 PT Problem 4 PT Problem #4 Impaired Strength PT Goal 1 Goal The patient will demonstrate 3+/5 right shoulder strength in all muscle groups to improve ADL ability. Target Visit 12 PT Goal 2 Goal The patient will demonstrate the ability to lift 50# from waist to shoulder to improve ability to perform lifting aspects of his job. Target Visit 24
[2023-06-22 07:00] VITALS: BP_SYST 150
--- NOTE | 2023-06-22 08:42 | OPREHPOC ---
Outpatient Therapy Plan of Care This is a Multidisciplinary Plan of Care that may contain components documented by all disciplines (PT, OT, and ST.) PT Problem 1 PT Problem #1 Knowledge Deficit PT Goal 1 Goal The patient will demonstrate independence in a home program for shoulder strengthening to continue after discharge from formal PT. Target Visit 22 Comment continue PT Goal 2 Target Visit 12 PT Problem 2 PT Problem #2 Pain PT Goal 1 Goal The patient will report no greater than 5/10 right shoulder pain with all activity. Target Visit 20 Comment continue PT Goal 2 Goal The patient will report no greater than 2/10 right shoulder pain when lifting 2# overhead. Target Visit 24 Comment continue PT Problem 3 PT Problem #3 Impaired Range of Motion PT Goal 1 Goal The patient will demonstrate R shoulder PROM at 75 % of normal to progress to AROM and strengthening. Target Visit 20 Comment continue PT Goal 2 Goal The patient will demonstrate 140 degrees of right shoulder flexion to improve OH reaching. The patient will demonstrate IR to T12 to improve dressing ability. The patient will demonstrate 75 degrees of right shoulder ER to improve ability to don a seatbelt. Target Visit 24 Comment continue PT Problem 4 PT Problem #4 Impaired Strength PT Goal 1 Goal The patient will demonstrate 3+/5 right shoulder strength in all muscle groups to improve ADL ability. Target Visit 12 Comment continue PT Goal 2 Goal The patient will demonstrate the ability to lift 50# from waist to shoulder to improve ability to perform lifting aspects of his job. Target Visit 24 Comment continue
--- NOTE | 2023-06-22 08:42 | PTOPREEVAL ---
Assessment and note entered by Harper Rodrigues DPT Evaluation Information Assessment Status Evaluation Diagnosis s/p R RCR, SAD, labral debridement Onset 03/14/23 Subjective Information Patient reports he still has pain that progresses throughout the day but reports it is improving. He reports he continues to have weakness. He states he can reach higher towards cabinets but is still unable to reach up to highest shelf. RTMD 06/26/23 Reported Pain Level Pain Score 3: Self Report Assessment PT Clinical Summary Patient has been seen for 12 visits of skilled PT. Patient continues to have pain and weakness presents at the R shoulder but demonstrates improved ROM at this time. Patient reports improvement with house hold chores but is unable to reach up into cabinets. Patient returns to [facility] on 06/26/23. He would benefit from continued skilled PT to address remaining impairments and return to [facility]. Plan of Care Interventions Electrical Stimulation,Hot Pack/Cold Pack,Manual Therapy,Neuro Re-education,Patient/Caregiver Educati,Therapeutic Activities,Therapeutic Exercise PT Services Indicated Yes Treatment Frequency and 2 times a week for 10 visits Duration These treatments will address the objective and functional deficits as defined above. The patient will be advanced safely and appropriately in order for the patient to progress towards his/her prior level of function. Additional exercises will be introduced and as well as a comprehensive home exercise program upon discharge, if needed, ?to ensure carryover of functional gains achieved in the clinic. This treatment plan has been reviewed and agreement upon by the patient.
[2023-08-03 07:00] VITALS: BP_SYST 150
--- NOTE | 2023-08-03 08:12 | PTOPPROG ---
Assessment and note entered by Viri Steven, PT Evaluation Information Assessment Status Progress Diagnosis s/p R RCR, SAD, labral debridement Onset 03/14/23 Subjective Information Med Rios reports his right shoulder is coming along well. He is noting steady improvements in the motion and strength. He is able to wash his hair now with his right arm but it is still a little painful. He also notes inability to reach behind his back all the way. He is able to lift items out of the refridgerator now but he is limited with heavier lifting. He complains of frequent popping when he lifts his arm and moves it in and out. 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 Assessment PT Clinical Summary Med Rios has completed 19 skilled PT visits following a right RCR, SAD, and labral debridement . He is reporting steady improvements in the right shoulder but still has limitations washing his hair, reaching behind his back, and lifting overhead. He objectively demonstrates improved right shoulder active and passive ROM as well as improved right shoulder strength. He does still demonstrate deficits in ROM, strength, and posture that are impeding his function for daily and work tasks. He continues to perceive a 70% deficit with daily tasks per the [employer] questionnaire. He will continue to benefit from skilled PT to further address these limitations and return him to his previous level of function. Plan of Care Interventions Electrical Stimulation,Hot Pack/Cold Pack,Manual Therapy,Neuro Re-education,Patient/Caregiver Educati,Therapeutic Activities,Therapeutic Exercise PT Services Indicated Yes Treatment Frequency and 2 times a week for 12 visits Duration These treatments will address the objective and functional deficits as defined above. The patient will be advanced safely and appropriately in order for the patient to progress towards his/her prior level of function. Additional exercises will be introduced and as well as a comprehensive home exercise program upon discharge, if needed, ?to ensure carryover of functional gains achieved in the clinic. This treatment plan has been reviewed and agreement upon by the patient.
--- NOTE | 2023-08-03 08:13 | OPREHPOC ---
Outpatient Therapy Plan of Care This is a Multidisciplinary Plan of Care that may contain components documented by all disciplines (PT, OT, and ST.) PT Problem 1 PT Problem #1 Knowledge Deficit PT Goal 1 Goal The patient will demonstrate independence in a home program for shoulder strengthening to continue after discharge from formal PT. Target Visit 36 Comment continue PT Goal 2 Target Visit 12 PT Problem 2 PT Problem #2 Pain PT Goal 1 Goal The patient will report no greater than 5/10 right shoulder pain with all activity. Target Visit 24 Comment continue PT Goal 2 Goal The patient will report no greater than 2/10 right shoulder pain when lifting 2# overhead. Target Visit 36 Comment continue PT Problem 3 PT Problem #3 Impaired Range of Motion PT Goal 1 Goal The patient will demonstrate R shoulder PROM at 75 % of normal to progress to AROM and strengthening. Target Visit 20 Progress Met Comment continue PT Goal 2 Goal The patient will demonstrate 140 degrees of right shoulder flexion to improve OH reaching. The patient will demonstrate IR to T12 to improve dressing ability. The patient will demonstrate 75 degrees of right shoulder ER to improve ability to don a seatbelt. Target Visit 36 Comment continue PT Problem 4 PT Problem #4 Impaired Strength PT Goal 1 Goal The patient will demonstrate 3+/5 right shoulder strength in all muscle groups to improve ADL ability. Target Visit 12 Progress Met Comment continue PT Goal 2 Goal The patient will demonstrate the ability to lift 50# from waist to shoulder to improve ability to perform lifting aspects of his job. Target Visit 36 Comment continue
== END 2023-08-10 19:00 | disposition still patient (30) ==
LOC: CHSPT 14:24
PROVIDERS: Visit Provider Orthopaedic Surgery
DX: Z48.89 Encounter for other specified surgical aftercare (principal); Z48.817 Encounter for surgical aftercare following surgery on the skin and subcutaneous tissue
CPT/HCPCS: 97014; 97110; 97161; 97530; G0283

== ENCOUNTER 2023-08-15 07:00 | Outpatient (RCR) | payer OTHER, SELFPAY ==
[2023-08-15 08:09] VITALS: BP_SYST 150
[2023-09-07 07:00] VITALS: BP_SYST 160
--- NOTE | 2023-09-07 08:49 | OPREHPOC ---
Outpatient Therapy Plan of Care This is a Multidisciplinary Plan of Care that may contain components documented by all disciplines (PT, OT, and ST.) PT Problem 1 PT Problem #1 Knowledge Deficit PT Goal 1 Goal The patient will demonstrate independence in a home program for shoulder strengthening to continue after discharge from formal PT. Target Visit 36 Progress Partially Met Comment continue PT Goal 2 Target Visit 12 PT Problem 2 PT Problem #2 Pain PT Goal 1 Goal The patient will report no greater than 5/10 right shoulder pain with all activity. Target Visit 36 Progress Partially Met Comment continue PT Goal 2 Goal The patient will report no greater than 2/10 right shoulder pain when lifting 2# overhead. Target Visit 36 Progress Partially Met Comment continue PT Problem 3 PT Problem #3 Impaired Range of Motion PT Goal 1 Goal The patient will demonstrate R shoulder PROM at 75 % of normal to progress to AROM and strengthening. Target Visit 20 Progress Met PT Goal 2 Goal The patient will demonstrate 140 degrees of right shoulder flexion to improve OH reaching. The patient will demonstrate IR to T12 to improve dressing ability. The patient will demonstrate 75 degrees of right shoulder ER to improve ability to don a seatbelt. Target Visit 36 Progress Partially Met Comment continue PT Problem 4 PT Problem #4 Impaired Strength PT Goal 1 Goal The patient will demonstrate 3+/5 right shoulder strength in all muscle groups to improve ADL ability. Target Visit 12 Progress Met Comment continue PT Goal 2 Goal The patient will demonstrate the ability to lift 50# from waist to shoulder to improve
--- NOTE | 2023-09-07 08:49 | PTOPPROG ---
Assessment and note entered by Viri Steven, PT Evaluation Information Assessment Status Progress Diagnosis s/p R RCR, SAD, labral debridement Onset 03/14/23 Subjective Information Med Rios reports that his right shoulder is still weak. He recently drove to and from [place] and notes his shoulder is sore and worn out following the drive. He reports the pain is intermittent depending how much he uses it. He notes the shoulder pain still wakes him at night occasionally and he can not lift as much with that arm. He has difficulty reaching behind his back and overhead. 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 He also c/o numbness in the right thumb. He remains off work at this time. Overall, he feels he has improved 65% since having surgery. Assessment PT Clinical Summary Med Rios is 25 weeks s/p R RCR, SAD, and labral debridement performed on 03/14/23. He is reporting overall improvements but continues to have weakness and fatigue in the right shoulder as well as pain still waking him at night occasionally. He still feels limited driving long periods, lifting overhead, and getting dressed ( primarily reaching behind the back). He feels he has improved 65% overall since having surgery. He objectively demonstrates improved right shoulder passive and active ROM and improved right shoulder strength. Despite these improvements, he still has limitations with strength and AROM. He was functionally able to lift 42.5# from floor to waist, 17.5# waist to shoulder, and 5# shoulder to overhead. Right shoulder AROM is as follows: flexion 132, abduction 105, internal rotation to the right PSIS functionally and 78 degrees in supine at 90 degrees abduction, and external rotation to C2 functionally and 70 degrees in supine at 90 degrees abduction. He will continue to benefit from skilled PT to focus on building functional strength in the right shoulder in preparation for returning to work. Plan of Care Interventions Electrical Stimulation,Hot Pack/Cold Pack,Manual Therapy,Neuro Re-education PT Services Indicated Yes Treatment Frequency and 2 times a week for 8 visits Duration These treatments will address the objective and functional deficits as defined above. The patient will be advanced safely and appropriately in order for the patient to progress towards his/
[2023-10-05 07:00] VITALS: BP_SYST 175
--- NOTE | 2023-10-05 08:15 | OPREHPOC ---
Outpatient Therapy Plan of Care This is a Multidisciplinary Plan of Care that may contain components documented by all disciplines (PT, OT, and ST.) PT Problem 1 PT Problem #1 Knowledge Deficit PT Goal 1 Goal The patient will demonstrate independence in a home program for shoulder strengthening to continue after discharge from formal PT. Target Visit 40 Progress Partially Met Comment continue PT Goal 2 Target Visit 12 PT Problem 2 PT Problem #2 Pain PT Goal 1 Goal The patient will report no greater than 5/10 right shoulder pain with all activity. Target Visit 40 Progress Partially Met Comment continue PT Goal 2 Goal The patient will report no greater than 2/10 right shoulder pain when lifting 2# overhead. Target Visit 40 Progress Partially Met Comment continue PT Problem 3 PT Problem #3 Impaired Range of Motion PT Goal 1 Goal The patient will demonstrate R shoulder PROM at 75 % of normal to progress to AROM and strengthening. Target Visit 20 Progress Met PT Goal 2 Goal The patient will demonstrate 140 degrees of right shoulder flexion to improve OH reaching. -met The patient will demonstrate IR to T12 to improve dressing ability. -progress towards, continue The patient will demonstrate 75 degrees of right shoulder ER to improve ability to don a seatbelt. -met Target Visit 40 Progress Partially Met Comment continue PT Problem 4 PT Problem #4 Impaired Strength PT Goal 1 Goal The patient will demonstrate 3+/5 right shoulder strength in all muscle groups to improve ADL ability. Target Visit 12 Progress Met PT Goal 2 Goal The patient will demonstrate the ability to lift 50# from waist to shoulder to improve ability
--- NOTE | 2023-10-05 08:16 | PTOPPROG ---
Assessment and note entered by Viri Steven, PT Evaluation Information Assessment Status Progress Diagnosis s/p R RCR, SAD, labral debridement Onset 03/14/23 Subjective Information Med Rios reports his right shoulder is doing better but it still wakes him occasionally due to pain. He notes he still has difficulty with lifting heavier items as well as reaching behind his back. 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 His right thumb is numb and his right middle finger does not bend all the way. Assessment PT Clinical Summary Med Rios is now 29 weeks s/p right RCR, SAD, and labral debridement. He is reporting progress in the right shoulder strength and less pain overall. He does still have occasional pain at night that wakes him as well as deficits in his ability to lift and reach behind the back. He also continues to have decreased rn navigator strength, numbness in the right thumb, and he drops items frequently. He is demonstrating steady improvements in right shoulder AROM and strength. He has improved his functional lifting from waist to shoulder from 17.5# to 32.5# and shoulder to overhead from 5# to 15#. AROM of the right shoulder is now: flexion 140 degrees, abduction 150 degrees, external rotation to C4 functionally and 75 degrees at 90 degrees abduction, internal rotation to L4 functionally and 78 degrees at 90 degrees abduction. He will continue to benefit from skilled PT to further improve functional strength until his next surgeon follow up on 10/25. Plan of Care Interventions Neuro Re-education,Patient/Caregiver Educati, Therapeutic Activities,Therapeutic Exercise PT Services Indicated Yes Treatment Frequency and 2 times a week for 6 visits Duration These treatments will address the objective and functional deficits as defined above. The patient will be advanced safely and appropriately in order for the patient to progress towards his/her prior level of function. Additional exercises will be introduced and as well as a comprehensive home exercise program upon discharge, if needed, ?to ensure carryover of functional gains achieved in the clinic. This treatment plan has been reviewed and agreement upon by the patient.
[2023-10-24 07:00] VITALS: BP_SYST 170
--- NOTE | 2023-10-24 09:12 | PTOPPROG ---
Assessment and note entered by Viri Steven, PT Evaluation Information Assessment Status Progress Diagnosis s/p R RCR, SAD, labral debridement Onset 03/14/23 Subjective Information Med Rios reports he still feels weak in his right shoulder and that pain still wakes him nightly. He also notes pain when he overdoes it with activities. He reports he has to lift 45-50# at work and often works by himself so he does not feel ready to return to work just yet. He feels he has improved 70-75% overall since having surgery. Assessment PT Clinical Summary Med Rios is now 32 weeks s/p right RCR, SAD, and labral debridement. 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 He is also reporting pain still wakes him. He continues to steadily progress with right shoulder strength demonstrating an improvement in waist to shoulder functional lift from 32.5# to 37.5# and shoulder to overhead functional lift from 15# to 20#. He demonstrates good right shoulder AROM with mild limitations noted with functional ER behind the head to C3 and functional IR behind the back to L5. He is also able to actively flex to 148 degrees in supine. Right shoulder PROM is within normal limits in all planes. He may continue to benefit from skilled PT to further address functional strength for return to work. We await further instruction pending his follow up visit with his surgeon on . Plan of Care Interventions Electrical Stimulation,Hot Pack/Cold Pack,Manual Therapy,Patient/Caregiver Educati,Therapeutic Activities,Therapeutic Exercise PT Services Indicated Yes Treatment Frequency and Await further orders pending follow up on 10/25/23 Duration . These treatments will address the objective and functional deficits as defined above. The patient will be advanced safely and appropriately in order for the patient to progress towards his/her prior level of function. Additional exercises will be introduced and as well as a comprehensive home exercise program upon discharge, if needed, ?to ensure carryover of functional gains achieved in the clinic. This treatment plan has been reviewed and agreement upon by the patient.
== END 2023-11-09 19:00 | disposition still patient (30) ==
LOC: CHSPT 07:00
PROVIDERS: Visit Provider Orthopaedic Surgery
DX: Z48.89 Encounter for other specified surgical aftercare; Z48.817 Encounter for surgical aftercare following surgery on the skin and subcutaneous tissue
CPT/HCPCS: 97110; 97530

== ENCOUNTER 2023-11-14 12:54 | Outpatient (RCR) | payer OTHER, SELFPAY ==
[2023-11-14 08:18] VITALS: BP_SYST 170
--- NOTE | 2023-11-23 11:03 | PCPTNOTE ---
11/23/23: Pt canceled his appointment on 11/21/23 with no reason given. He left a message. -Viri Steven, PT
[2023-12-21 07:10] VITALS: BP_SYST 180
--- NOTE | 2023-12-21 08:09 | OPREHPOC ---
Outpatient Therapy Plan of Care This is a Multidisciplinary Plan of Care that may contain components documented by all disciplines (PT, OT, and ST.) PT Problem 1 PT Problem #1 Knowledge Deficit PT Goal 1 Goal The patient will demonstrate independence in a home program for shoulder strengthening to continue after discharge from formal PT. Target Visit 40 Progress Met PT Goal 2 Target Visit 12 PT Problem 2 PT Problem #2 Pain PT Goal 1 Goal The patient will report no greater than 5/10 right shoulder pain with all activity. Target Visit 40 Progress Met PT Goal 2 Goal The patient will report no greater than 2/10 right shoulder pain when lifting 2# overhead. Target Visit 40 Progress Met PT Problem 3 PT Problem #3 Impaired Range of Motion PT Goal 1 Goal The patient will demonstrate R shoulder PROM at 75 % of normal to progress to AROM and strengthening. Target Visit 20 Progress Met PT Goal 2 Goal The patient will demonstrate 140 degrees of right shoulder flexion to improve OH reaching ability. The patient will demonstrate IR to T12 to improve dressing ability. The patient will demonstrate 75 degrees of right shoulder ER to improve ability to don a seatbelt. Target Visit 40 Progress Met PT Problem 4 PT Problem #4 Impaired Strength PT Goal 1 Goal The patient will demonstrate 3+/5 right shoulder strength in all muscle groups to improve ADL ability. Target Visit 12 Progress Met PT Goal 2 Goal The patient will demonstrate the ability to lift 50# from waist to shoulder to improve ability to perform lifting aspects of his job. Target Visit 40 Progress Met
--- NOTE | 2023-12-21 08:09 | PTOPDC ---
Assessment and note entered by Viri Steven, PT Evaluation Information Assessment Status Discharge Diagnosis s/p R RCR, SAD,labral debridement Onset 03/14/23 Subjective Information Med Rios reports his right shoulder is doing well. He typically does not have pain in it with most activities. He feels he still has difficulty with repetitive activities like raking leaves and reaching behind his back to put his belt on. He reports that he had a fall on 12/15/23 when he slipped getting out of his truck and landed on his right elbow. He reports he had shoulder soreness for a couple days after the fall but he has not noticed any lingering effects or difficulty with daily activities. He does feel he could return to work if he needs to. Reported Pain Level Pain Score 0: Self Report Assessment PT Clinical Summary Med Rios has completed 52 visits following a right rotator cuff repair performed on 03/14/23. He is reporting no difficulty with most daily activities but does note soreness following repetitive activities like raking leaves. He objectively demonstrates full passive right shoulder ROM, functional active right shoulder ROM , full right shoulder strength in all muscle groups, and he is able to lift 57.5# from waist to shoulder and 40# from shoulder to overhead. He has met all PT goals and will be discharged from skilled PT. Plan of Care PT Services Indicated No
== END 2023-12-21 08:55 | disposition home or self-care (01) ==
LOC: CHSPT 12:54
PROVIDERS: Visit Provider Orthopaedic Surgery
DX: Z48.89 Encounter for other specified surgical aftercare (principal); Z48.817 Encounter for surgical aftercare following surgery on the skin and subcutaneous tissue
CPT/HCPCS: 97110; 97530; 97750